=== PATIENT | male | born 1950 | race Caucasian/White ===

== ENCOUNTER 2016-05-31 12:59 | Emergency (ER) | payer OTHER ==
[2016-05-31] MEDS ORDERED: OPTIRAY 350 100 ML VIAL HMH IV ONE (13:00)
[2016-05-31] MEDS ORDERED: SODIUM CHLORIDE 0.9% 1,000 ML ONE (16:21)
[2016-05-31] MEDS ORDERED: DILAUDID 1 MG/ML AMP ONE ×3 (16:32→20:32)
== END 2016-05-31 20:52 | disposition other institution (70) ==
LOC: ER 12:59
CPT/HCPCS: 36415; 70450; 71260; 72125; 74177; 80053; 83690; 85025; 85610; 85730; 96361; 96374; 96376